=== PATIENT | female | born 1975 | race Caucasian/White ===

== ENCOUNTER → 2018-11-30 15:50 | Outpatient (CLI) | payer MEDICAID, SELFPAY ==
[2018-11-30 17:48] LABS: T4 Free Direct 0.95 ng/dL (0.76-1.46); Thyroid Stim Hormone (TSH) 2.69 uIU/mL (0.358-3.74)
[2018-11-30 17:49] LABS: T3 Total - Triiodothyronine 1.36 ng/mL (0.6-1.81)
[2018-12-11 11:23] LABS: Anti-Thyroglobulin AB 3.4 IU/mL (0.0-0.9); Thyroglobulin RIA 27 ng/mL (.)
== END ==
PROVIDERS: Family Provider Family Medicine; PCP Family Medicine; Referring Provider Dermatology Pediatric Dermatology; Visit Provider Dermatology Pediatric Dermatology
DX: L29.8 Other pruritus (principal); T14.8XXA Other injury of unspecified body region, initial encounter; L90.5 Scar conditions and fibrosis of skin; L80 Vitiligo
CPT/HCPCS: 36415; 84432; 84439; 84443; 84480; 86800